=== PATIENT | male | born 2000 | race Hispanic/Latino ===

== ENCOUNTER 2025-04-17 21:57 | Emergency (ER) | payer OTHER ==
[2025-04-17] MEDS ORDERED: ONDANSETRON 4 MG/2 ML VIAL ONE (22:42)
[2025-04-17] MEDS ORDERED: NA CHLORIDE 0.9% 1,000 ML ONE (22:43)
[2025-04-17] MEDS ORDERED: MORPHINE 4 MG/ML SYR ONE (22:43)
[2025-04-17 23:21] LABS: Absolute Lymphocytes (CBC) 1.6 K/uL (0.7-4.9); Hematocrit 47.0 % (39.6-49.0); Hemoglobin 16.2 g/dL (13.6-17.9); MCH 30.2 pg (27.0-35.0); MCHC 34.4 g/dL (32.0-36.0); MCV 87.6 fL (80-100); MPV 10.3 fL (7.6-11.3); Nucleated RBC Absolute Count 0.0 (0-0); Nucleated Red Blood Cells % 0.2 % (0-0); RBC Red Blood Cell Count 5.37 M/uL (4.33-5.43); White Blood Count 12.10 thou/uL (4.3-10.9)
[2025-04-17 23:32] LABS: ALT/SGPT 31.0 U/L (16-61); AST/SGOT 17.0 U/L (15-37); Albumin 5.0 g/dL (3.4-5.0); Albumin/Globulin Ratio 1.4 (1.1-1.8); Alkaline Phosphatase 75.0 U/L (45-117); Anion Gap 14.0 mEq/L (5.0-15.0); BUN Blood Urea Nitrogen 18.0 mg/dL (7-18); Globulin 3.5 g/dL (2.3-3.5); Glucose Level 154.0 mg/dL (74-106); Lipase 27.0 U/L (13-75); Potassium 4.0 mEq/L (3.5-5.1)
[2025-04-18] MEDS ORDERED: PANTOPRAZOLE 40 MG INJ ONE (00:59)
--- NOTE | 2025-04-18 02:02 | RAD REPORT ---
EXAM: XR Chest, 1 View CLINICAL HISTORY: The patient is 24 years old and is Male; epigastric pain TECHNIQUE: Frontal view of the chest. COMPARISON: XR Chest dated March 15 2025 FINDINGS: LUNGS: Unremarkable. No consolidation. PLEURAL SPACE: Unremarkable. No pneumothorax. HEART: Unremarkable. No cardiomegaly. MEDIASTINUM: Unremarkable. Normal mediastinal contour. BONES/JOINTS: Unremarkable. No acute fracture. UPPER ABDOMEN: Unremarkable as visualized. IMPRESSION: No acute cardiopulmonary process. Electronically signed by: Kylah Minor MD 04/18/2025 01:45 AM CDT RP Due to temporary technical issues with the PACS/Live Mobile reporting system, reports are being warren d by the in-house radiologist without review as a courtesy to ensure prompt reporting the interpreting radiologist is fully responsible for the content of the report. Transcribed Date/Time: 04/18/2025 2:02 AM
[2025-04-18] MEDS ORDERED: METOCLOPRAMIDE 10 MG/2mL INJ ONE (02:59)
[2025-04-18] MEDS ORDERED: DIPHENHYDRAMINE 50 MG/ML VIAL ONE (02:59)
[2025-04-18] MEDS ORDERED: FAMOTIDINE 20 MG/2 ML VIAL IV ONE (02:59)
[2025-04-18] MEDS ORDERED: MAGNES/ALUMIN/SIMET 30ML UCUP ONE (03:00)
[2025-04-18] MEDS ORDERED: LIDOCAINE VISCOUS 2% 10ML ORAL SOLN ONE (03:01)
--- NOTE | 2025-04-18 03:06 | EDPHYS ---
Physician Documentation [facility] Name: Tomi Pryor Age: 24 yrs Sex: Male : 2000 Arrival Date: 04/17/2025 Time: 21:57 Bed 17 Private MD: ED Physician Juan Caro HPI: 04/17 22:40 This 24 yrs old Male presents to ER via Ambulatory with complaints of cp Abdominal Pain, Vomiting. 22:40 The patient presents with abdominal pain in the epigastric area. Onset: The cp symptoms/episode began/occurred today. The symptoms radiate to Associated signs and symptoms: Pertinent positives: nausea and vomiting, Pertinent negatives: constipation, diarrhea, fever, active vomiting. Patient reports history of gastric ulcers. has not been taking previously prescribed ulcer medications. noticed some red colored blood in emesis and dark colored emesis today. 22:40 The symptoms are described as achy, constant. cp 22:40 Severity of pain: in the emergency department the pain is unchanged despite home cp interventions. Historical: - Allergies: 22:10 No Known Allergies; rg5 - PMHx: 22:10 Ulcer; rg5 - Immunization history:: Adult Immunizations unknown. - Infectious Disease History:: Denies. - Social history:: Smoking status: Patient/guardian denies using tobacco. ROS: 22:45 Constitutional: Negative for fever, cp 22:45 Eyes: Negative for injury, pain, redness, and discharge, cp 22:45 ENT: Negative for drainage from ear(s), ear pain, sore throat, difficulty swallowing, difficulty handling secretions, 22:45 Cardiovascular: Negative for chest pain, palpitations, 22:45 Respiratory: Negative for cough, shortness of breath, wheezing, 22:45 Abdomen/GI: Positive for abdominal pain, nausea and vomiting, Negative for diarrhea, constipation, 22:45 Back: Negative for pain at rest, pain with movement, radiated pain, 22:45 Neuro: Negative for altered mental status, dizziness, headache, weakness, 22:45 All other systems are negative, Exam: 22:55 Constitutional: The patient appears in no acute distress, alert, awake, cp non-diaphoretic, non-toxic, well developed, well nourished, 22:55 Head/Face: Normocephalic, atraumatic. cp 22:55 Eyes: Periorbital structures: appear normal, Conjunctiva: normal, no exudate, no injection, Sclera: no appreciated abnormality, Lids and lashes: appear normal, bilaterally, 22:55 ENT: External ear(s): are unremarkable, Nose: is normal, Mouth: Lips: moist, Oral mucosa: moist, Posterior pharynx: Airway: no evidence of obstruction, patent, erythema, is not appreciated, exudate, is not appreciated, 22:55 Chest/axilla: Inspection: normal, 22:55 Cardiovascular: Rate: normal, Rhythm: regular, 22:55 Respiratory: the patient does not display signs of respiratory distress, Respirations: normal, no use of accessory muscles, no retractions, labored breathing, is not present, Breath sounds: are clear throughout, no decreased breath sounds, no stridor, no wheezing, 22:55 Abdomen/GI: Inspection: abdomen appears normal, Bowel sounds: active, all quadrants, Palpation: soft, in all quadrants, severe abdominal tenderness, in the epigastric area, rebound tenderness, is not appreciated, 22:55 Back: pain, is absent, ROM is normal, 22:55 Neuro: Orientation: to person, place \T\ time. Mentation: is normal, Motor: moves all fours, strength is normal, Sensation: is normal, Vital Signs: 22:10 BP 137 / 102; Pulse 72; Resp 19; Temp 98.3; Pulse Ox 100% ; Weight 60.24 kg; Height 5 rg5 ft. 1 in. ; Pain 10/10; 22:20 BP 146 / 105; Pulse 91; Resp 18; Pulse Ox 90% on R/A; kt5 23:30 BP 142 / 95; Pulse 74; Resp 16; Pulse Ox 96% ; kt5 04/18 00:35 BP 139 / 98; Pulse 80; Resp 18; Pulse Ox 97% ; kt5 01:48 BP 136 / 74; Pulse 74; Resp 18; Pulse Ox 99% ; kt5 02:36 BP 138 / 83; Pulse 83; Resp 18; Pulse Ox 100% ; kt5 03:41 BP 132 / 70; Pulse 89; Resp 16 S; Temp 98.6; Pulse Ox 99% on R/A; kt5 04/17 22:10 Body Mass Index 25.09 (60.24 kg, 154.94 cm) [facility] 04/17 22:10 Pain Scale: Adult rg5 MDM: 04/17 22:09 Medical Screening Exam initiated nasim 23:00 Differential diagnosis: bowel obstruction, cholecystitis, Cholelithiasis, gastritis, cp gastroesophageal reflux disease, GI Bleed, pancreatitis, Peptic Ulcer Disease, Perf. Duodenal Ulcer, Perf. Gastric Ulcer. 04/18 03:05 Data reviewed: vital signs, nurses notes, lab test result(s), radiologic studies, CT cp scan, plain films, and as a result, I will discharge patient. 03:05 I considered the following discharge prescriptions or medication management in the emergency department Medications were administered in the Emergency Department. See MAR. Independent interpretation of the following test(s) in the Emergency Department X-Ray: My interpretation is chest image negative for infiltrates. Counseling: I had a detailed discussion with the patient and/or guardian regarding the historical points, exam findings, and any diagnostic results supporting the discharge/admit diagnosis, lab results, radiology results, the need for outpatient follow up, a all source analyst, to return to the emergency department if symptoms worsen or persist or if there are any questions or concerns that arise at home. Response to treatment: the patient's symptoms have mildly improved after treatment, and as a result, I will discharge patient. Special discussion: Based on the patient's Hx, exam, and Dx evaluation, there is no indication for emergent surgery or inpatient Tx. It is understood by the patient/guardian that if the Sx's persist or worsen they need to return immediately for re-evaluation. 04/17 22:36 Order name: CBC with Diff; Complete Time: 00:28 04/18 02:44 Interpretation: Reviewed. 04/17 22:36 Order name: CMP; Complete Time: 00:28 04/17 22:36 Order name: Lipase; Complete Time: 00:28 04/17 23:00 Order name: XRAY Chest (1 view) 04/18 00:28 Order name: CT Abd/Pelvis - IV Contrast Only 04/17 22:36 Order name: IV Saline Lock; Complete Time: 22:38 04/17 22:36 Order name: Labs collected and sent; Complete Time: 22:41 Administered Medications: 04/17 22:48 Drug: Ondansetron IVP 4 mg IVP once; over 2 minutes Route: IVP; Site: left antecubital; kt5 04/18 00:56 Follow up: Response: No adverse reaction; Nausea is decreased kt5 04/17 22:48 Drug: NS 0.9% IV 1000 ml IV at 1 bolus Per protocol; to be given as a bolus over 60 kt5 minutes Route: IV; Rate: 1 bolus; Site: left antecubital; 04/18 00:56 Follow up: Response: No adverse reaction; IV Status: Completed infusion; IV Intake: kt5 1000ml 04/17 22:49 Drug: morphine IVP or IV 4 mg IVP once over 4 mins Route: IVP; Infused Over: 4 mins; kt5 Site: left antecubital; 04/18 00:56 Follow up: Response: No adverse reaction; Pain is decreased kt5 01:03 Drug: Pantoprazole IVP 40 mg IVP once Route: IVP; Site: right antecubital; kt5 01:22 Follow up: Response: No adverse reaction kt5 03:11 Drug: Famotidine IVP 20 mg IVP once; dilute with 10 mL 0.9% NaCl; give over 2 minutes kt5 Route: IVP; Site: right antecubital; 04:03 Follow up: Response: No adverse reaction; Pain is decreased kt5 03:11 Drug: metoCLOPramide IVP 10 mg IVP once; over 1 to 2 minutes Route: IVP; Site: right kt5 antecubital; 04:03 Follow up: Response: No adverse reaction; Nausea is decreased kt5 03:11 Drug: diphenhydrAMINE IVP 25 mg IVP once Route: IVP; Site: right antecubital; kt5 04:03 Follow up: Response: No adverse reaction; Pain is decreased kt5 03:12 Drug: GI Cocktail without - (Maalox PO 30 ml, Lidocaine Mucous Membrane 2 % 15 kt5 ml) PO once Route: PO; 04:03 Follow up: Response: No adverse reaction; Pain is decreased kt5 Disposition Summary: 04/18/25 03:05 Discharge Ordered Notes: Location: Home cp Problem: new cp Symptoms: have improved cp Condition: Stable cp Diagnosis - Epigastric pain cp - Nausea with vomiting, unspecified cp Followup: cp - With: Piyush Orta MD - When: 2 - 3 days - Reason: Worsening of condition Discharge Instructions: - Discharge Summary Sheet cp - Abdominal Pain, Adult cp - Gastritis, Adult cp - Gastroesophageal Reflux Disease, Adult cp - Nausea and Vomiting, Adult cp Forms: - Medication Reconciliation Form cp - Antibiotic Education cp - Prescription Opioid Use cp - Patient Portal Instructions cp - Leadership Thank You Letter cp Prescriptions: - Carafate 1 gram Oral tablet - take 2 tablets ORAL route every 12 hours take on an empty stomach, before cp meals. dissolve tablets in 6 to 8 ounces warm water prior to ingestion; 100 tablet; Refills: 0, Product Selection Permitted - Protonix 40 mg Oral tablet, delayed release (enteric coated) - take 1 tablet ORAL route every 12 hours for 15 days; 30 tablet; Refills: 0, cp Product Selection Permitted - Zofran 4 mg Oral Tablet - take 1 tablet ORAL route every 12 hours As needed; 6 tablet; Refills: 0, cp Product Selection Permitted Addendum: 04/22/2025 11:42 Co-signature as Attending Physician, Juan Caro MD I agree with the assessment and c brito plan of care. Signatures: Dispatcher [employer] [facility] Juan Caro MD MD cha Page, Corey, PA-C PA-C cp Mat Moss, RN RN rg5 Katheryn Moya RN RN kt5 Corrections: (The following items were deleted from the chart) 04/18 00:29 00:29 Abdomen Pelvis W Con+CT.RAD.BRZ ordered. [facility] 04/19 02:27 02:25 This 24 yrs old Male presents to ER via Ambulatory with complaints of cp Abdominal Pain, Vomiting. cp 03:49 04/17 22:40 The symptoms are described as constant, sharp, cp cp
--- NOTE | 2025-04-18 03:06 | ER ---
Nurse's Notes [facility] Name: Tomi Pryor Age: 24 yrs Sex: Male : 2000 Arrival Date: 04/17/2025 Time: 21:57 Bed 17 Private MD: Diagnosis: Epigastric pain;Nausea with vomiting, unspecified Presentation: 04/17 22:08 Chief complaint: Patient states: patient complaint of nausea, vomiting \T\ abdominal pain rg5 - 05/10. Coronavirus screen: Client denies travel out of the [place] in the last 14 days. Ebola Screen: Patient negative for fever greater than or equal to 101.5 degrees Fahrenheit, and additional compatible Ebola Virus Disease symptoms Patient denies exposure to infectious person. Patient denies travel to an Ebola-affected area in the 21 days before illness onset. Initial Sepsis Screen: Does the patient meet any 2 criteria? No. Patient's initial sepsis screen is negative. Does the patient have a suspected source of infection? No. Patient's initial sepsis screen is negative. Risk Assessment: Do you want to hurt yourself or someone else? Patient reports no desire to harm self or others. Activity prior to arrival: vomiting. 22:08 Method Of Arrival: Ambulatory rg5 22:08 Acuity: SYEDA 3 rg5 Triage Assessment: 22:10 General: Appears uncomfortable, Behavior is calm, cooperative, appropriate for age. rg5 Pain: Complains of pain in abdomen Quality of pain is described as aching, Pain began gradually, 4 hours ago. EENT: No signs and/or symptoms were reported regarding the EENT system. Neuro: Level of Consciousness is awake, alert, obeys commands, Oriented to person, place, time, situation. Cardiovascular: Denies chest pain, Patient's skin is warm and dry. Respiratory: Airway is patent Respiratory effort is even, unlabored. GI: Reports lower abdominal pain, upper abdominal pain, nausea, vomiting. : No signs and/or symptoms were reported regarding the genitourinary system. Derm: Skin is intact, Skin is dry, Skin is normal, Skin temperature is warm. Musculoskeletal: Circulation, motion, and sensation intact. Range of motion: intact in all extremities. Historical: - Allergies: 22:10 No Known Allergies; rg5 - PMHx: 22:10 Ulcer; rg5 - Immunization history:: Adult Immunizations unknown. - Infectious Disease History:: Denies. - Social history:: Smoking status: Patient/guardian denies using tobacco. Screenin:20 [facility] ED Fall Risk Assessment (Adult) History of falling in the last 3 months, kt5 including since admission No falls in past 3 months (0 pts) Confusion or Disorientation No (0 pts) Intoxicated or Sedated No (0 pts) Impaired Gait No (0 pts) Mobility Assist Device Used No (0 pt) Altered Elimination No (0 pt) Score/Fall Risk Level 0 - 2 = Low Risk Oriented to surroundings, Maintained a safe environment. Abuse screen: Denies threats or abuse. Abuse screen: Denies threats or abuse. Nutritional screening: No deficits noted. Tuberculosis screening: No symptoms or risk factors identified. Assessment: 22:13 Pain: Complains of pain in abdomen. GI: Reports nausea, vomiting. rg5 22:20 General: Appears in no apparent distress. uncomfortable, Behavior is calm, cooperative, kt5 appropriate for age. Neuro: No deficits noted. [place] Agitation-Sedation Scale (RASS): 0 - Alert and Calm Level of Consciousness is awake, alert, obeys commands, Oriented to person, place, time, situation. Cardiovascular: No deficits noted. Heart tones S1 S2 present Capillary refill < 3 seconds Clubbing of nail beds is absent JVD is absent Pulses are all present. Edema is absent. Respiratory: No deficits noted. Airway is patent Trachea midline Respiratory effort is even, unlabored, Respiratory pattern is regular, symmetrical. GI: Bowel sounds present X 4 quads. Abd is soft X 4 quads Abdomen is tender to palpation X 4 quads. Reports diarrhea, nausea, vomiting. : No deficits noted. No signs and/or symptoms were reported regarding the genitourinary system. EENT: No deficits noted. No signs and/or symptoms were reported regarding the EENT system. Derm: No deficits noted. No signs and/or symptoms reported regarding the dermatologic system. Skin is intact, is healthy with good turgor, Skin is dry, Skin is pink, warm \T\ dry. Musculoskeletal: No deficits noted. No signs and/or symptoms reported regarding the musculoskeletal system. 23:30 Reassessment: Patient appears in no apparent distress at this time. Patient and/or kt5 family updated on plan of care and expected duration. Pain level reassessed. Patient is alert, oriented x 3, equal unlabored respirations, skin warm/dry/pink. Patient denies pain at this time. Patient states feeling better. Patient states symptoms have improved. 04/18 00:35 Reassessment: Patient appears in no apparent distress at this time. Patient and/or kt5 family updated on plan of care and expected duration. Pain level reassessed. Patient is alert, oriented x 3, equal unlabored respirations, skin warm/dry/pink. Patient denies pain at this time. Patient states feeling better. Patient states symptoms have improved. 01:48 Reassessment: Patient appears in no apparent distress at this time. Patient and/or kt5 family updated on plan of care and expected duration. Pain level reassessed. Patient is alert, oriented x 3, equal unlabored respirations, skin warm/dry/pink. Patient denies pain at this time. Patient states feeling better. Patient states symptoms have improved. 02:36 Reassessment: Patient appears in no apparent distress at this time. Patient and/or kt5 family updated on plan of care and expected duration. Pain level reassessed. Patient is alert, oriented x 3, equal unlabored respirations, skin warm/dry/pink. Patient denies pain at this time. Patient states feeling better. Patient states symptoms have improved. 03:41 Reassessment: Patient appears in no apparent distress at this time. Patient and/or kt5 family updated on plan of care and expected duration. Pain level reassessed. Patient is alert, oriented x 3, equal unlabored respirations, skin warm/dry/pink. Patient denies pain at this time. Patient states feeling better. Patient states symptoms have improved. Vital Signs: 04/17 22:10 BP 137 / 102; Pulse 72; Resp 19; Temp 98.3; Pulse Ox 100% ; Weight 60.24 kg; Height 5 rg5 ft. 1 in. ; Pain 10/10; 22:20 BP 146 / 105; Pulse 91; Resp 18; Pulse Ox 90% on R/A; kt5 23:30 BP 142 / 95; Pulse 74; Resp 16; Pulse Ox 96% ; kt5 04/18 00:35 BP 139 / 98; Pulse 80; Resp 18; Pulse Ox 97% ; kt5 01:48 BP 136 / 74; Pulse 74; Resp 18; Pulse Ox 99% ; kt5 02:36 BP 138 / 83; Pulse 83; Resp 18; Pulse Ox 100% ; kt5 03:41 BP 132 / 70; Pulse 89; Resp 16 S; Temp 98.6; Pulse Ox 99% on R/A; kt5 04/17 22:10 Body Mass Index 25.09 (60.24 kg, 154.94 cm) rg5 04/17 22:10 Pain Scale: Adult 5 ED Course: 04/17 21:58 Patient arrived in ED. mr 22:00 Juan Gilliam PA-C is PHCP. cp 22:00 Juan Caro MD is Attending Physician. cp 22:10 Triage completed. rg5 22:10 Arm band placed on. rg5 22:11 Inserted saline lock: 20 gauge in right antecubital area, using aseptic technique. vk Flushed with 10 mL NS. 22:20 No provider procedures requiring assistance completed. kt5 22:20 Bed in low position. Call light in reach. Side rails up X 1. Client placed on kt5 continuous cardiac and pulse oximetry monitoring. NIBP monitoring applied. Door closed. Noise minimized. Warm blanket given. Pillow given. 22:28 Katheryn Moya, RN is Primary Nurse. kt5 22:38 CBC with Diff Sent. kt5 22:38 CMP Sent. kt5 22:38 Lipase Sent. kt5 04/18 00:25 X-ray completed. Portable x-ray completed in exam room. [facility] 00:29 XRAY Chest (1 view) In Process Unspecified. EDMS 00:52 CT Abd/Pelvis - IV Contrast Only In Process Unspecified. EDMS 03:05 Piyush Orta MD is Referral Physician. cp 03:41 IV discontinued, intact, bleeding controlled, No redness/swelling at site. Pressure kt5 dressing applied. 03:41 Provided Education on: follow up and meds. kt5 Administered Medications: 04/17 22:48 Drug: Ondansetron IVP 4 mg IVP once; over 2 minutes Route: IVP; Site: left antecubital; kt5 04/18 00:56 Follow up: Response: No adverse reaction; Nausea is decreased kt5 04/17 22:48 Drug: NS 0.9% IV 1000 ml IV at 1 bolus Per protocol; to be given as a bolus over 60 kt5 minutes Route: IV; Rate: 1 bolus; Site: left antecubital; 18 00:56 Follow up: Response: No adverse reaction; IV Status: Completed infusion; IV Intake: kt5 1000ml 04/17 22:49 Drug: morphine IVP or IV 4 mg IVP once over 4 mins Route: IVP; Infused Over: 4 mins; kt5 Site: left antecubital; 18 00:56 Follow up: Response: No adverse reaction; Pain is decreased kt5 01:03 Drug: Pantoprazole IVP 40 mg IVP once Route: IVP; Site: right antecubital; kt5 01:22 Follow up: Response: No adverse reaction kt5 03:11 Drug: Famotidine IVP 20 mg IVP once; dilute with 10 mL 0.9% NaCl; give over 2 minutes kt5 Route: IVP; Site: right antecubital; 04:03 Follow up: Response: No adverse reaction; Pain is decreased kt5 03:11 Drug: metoCLOPramide IVP 10 mg IVP once; over 1 to 2 minutes Route: IVP; Site: right kt5 antecubital; 04:03 Follow up: Response: No adverse reaction; Nausea is decreased kt5 03:11 Drug: diphenhydrAMINE IVP 25 mg IVP once Route: IVP; Site: right antecubital; kt5 04:03 Follow up: Response: No adverse reaction; Pain is decreased kt5 03:12 Drug: GI Cocktail without - (Maalox PO 30 ml, Lidocaine Mucous Membrane 2 % 15 kt5 ml) PO once Route: PO; 04:03 Follow up: Response: No adverse reaction; Pain is decreased kt5 Medication: 04/17 22:20 VIS not applicable for this client. kt5 Intake: 04/18 00:56 IV: 1000ml; Total: 1000ml. kt5 Outcome: 03:05 Discharge ordered by MD. carey 03:41 Discharged to home ambulatory, kt5 03:41 Condition: improved 03:41 Discharge instructions given to patient, Instructed on discharge instructions, follow up and referral plans. Demonstrated understanding of instructions, follow-up care, medications, Prescriptions given X 3, 04:04 Patient left the ED. kt5 Signatures: Dispatcher [employer] EDSima Harkins, Romeo Walters mr María Washington mh1 Juan Gilliam PA-C PA-C cp Kruse, Vivian vk Gallardo, Rommel, RN RN rg5 Katheryn Moya RN RN kt5 Corrections: (The following items were deleted from the chart) 04/17 23:08 22:20 BP 146 / 105; Pulse 91bpm; Resp 18bpm; Pulse Ox 90% Nasal Cannula; kt5 kt5
[2025-04-18 04:22] VITALS: BP 132/70; TEMP 98.6; O2SAT 99
--- NOTE | 2025-04-18 06:30 | RAD REPORT ---
EXAM: CT Abdomen and Pelvis With Intravenous Contrast CLINICAL HISTORY: The patient is 24 years old and is Male; upper abdomen pain TECHNIQUE: Axial computed tomography images of the abdomen and pelvis with intravenous contrast. Sagittal an d coronal reformatted images were created and reviewed. This CT exam was performed using one or more of the following dose reduction techniques: automated exposure control, adjustment of the mA a nd/or kV according to patient size, and/or use of iterative reconstruction technique. COMPARISON: CT Abdomen Pelvis dated March 15 2025 FINDINGS: LUNG BASES: Unremarkable. No mass. No consolidation. ABDOMEN: LIVER: The liver is mildly enlarged and fatty. The liver is homogeneous. GALLBLADDER AND BILE DUCTS: No calcified stones. No ductal dilation. PANCREAS: No ductal dilation. No mass. SPLEEN: Unremarkable. ADRENALS: Unremarkable. No mass. KIDNEYS AND URETERS: Unremarkable. The kidneys enhance symmetrically. No obstructing renal or ure teral calculus is seen. No hydronephrosis or hydroureter. No perinephric fluid or stranding. STOMACH AND BOWEL: The stomach is minimally distended with fluid and air. The small bowel is norm al in caliber. Stool is present throughout the colon. There is no mucosal thickening or evidence of obstruction. PELVIS: APPENDIX: The appendix is normal in caliber without surrounding inflammation. BLADDER: The bladder is moderately distended. REPRODUCTIVE: Unremarkable as visualized. ABDOMEN and PELVIS: INTRAPERITONEAL SPACE: Unremarkable. No free air. No significant fluid collection. BONES/JOINTS: No acute fracture. SOFT TISSUES: The soft tissues are normal. VASCULATURE: Unremarkable. No abdominal aortic aneurysm. LYMPH NODES: Unremarkable. No enlarged lymph nodes. IMPRESSION: No acute findings on this contrasted CT of the abdomen and pelvis to explain the patient's symptoms . Electronically signed by: Kylah Minor MD 04/18/2025 01:46 AM CDT Due to temporary technical issues with the PACS/i[employer] reporting system, reports are being warren d by the in-house radiologist without review as a courtesy to ensure prompt reporting the interpreting radiologist is fully responsible for the content of the report. Transcribed Date/Time: 04/18/2025 6:29 AM
== END 2025-04-18 04:04 | disposition home or self-care (01) ==
LOC: ER 21:57
DX: R10.13 Epigastric pain (principal); R11.2 Nausea with vomiting, unspecified
CPT/HCPCS: 85025; 36415; 83690; 80053; 74177; 71045; 99285; Q9967; J2765; J1200; J2470; J2405; J7030